=== PATIENT | female | born 1960 | race Caucasian/White ===

== ENCOUNTER 2018-11-14 18:25 | Emergency (ER) | payer OTHER ==
[~2018-11-14] VITALS: Ht 170.2 cm; Wt 63.5 kg
[2018-11-14 18:35] VITALS: BP 192/94
[2018-11-14] MEDS ORDERED: HORMONES (18:42)
[2018-11-14] MEDS ORDERED: XANAX 0.5 MG0.5 MG PO (18:42)
[2018-11-14] MEDS ORDERED: CELEXA20 MG PO (18:42)
[2018-11-14] MEDS ORDERED: BENADRYL25 MG PO (18:42)
[2018-11-14] MEDS ORDERED: PENICILLIN V P500 MG PO (18:51)
[2018-11-14] MEDS ORDERED: NORCO 5-325 TA1 EACH PO (18:51)
== END 2018-11-14 19:05 | disposition home or self-care (01) ==
LOC: M.ERS 18:25
DX: K04.7 Periapical abscess without sinus (principal); M79.7 Fibromyalgia; M19.90 Unspecified osteoarthritis, unspecified site; K58.9 Irritable bowel syndrome, unspecified; G89.29 Other chronic pain; Z88.2 Allergy status to sulfonamides